=== PATIENT | female | born 1995 | race Caucasian/White ===

== ENCOUNTER 2017-05-09 19:24 | Emergency (ER) | payer OTHER ==
[~2017-05-09] VITALS: Ht 165.1 cm; Wt 82.1 kg
[2017-05-09 19:28] VITALS: Ht 165.1 cm; Wt 82.1 kg
--- NOTE | 2017-05-09 20:01 | ERD ---
ER Documentation Chief Complaint Chief Complaint Vaginal bleeding HPI The patient is a 22-year-old female, A0, who presents to the emergency department with complaint of vaginal bleeding. The patient reports that after using the restroom this evening, approximately 10 minutes ago, she wiped, and noted a small amount of blood on the tissue paper. She denies any passage of large clots or tissue. She denies any dizziness, weakness, fatigue, nausea, vomiting, fevers, sweats, chills, chest pain, palpitations or shortness of breath. Denies any vaginal discharge. Denies dysuria, hematuria or flank pain. The patient reports that her last menstrual period was 03/30/2017. She believes that she is approximately 6 weeks . No other complaints at this time. ROS All systems reviewed and are negative except as per history of present illness. Allergies Allergies: Coded Allergies: No Known Drug Allergies (Verified Allergy, Unknown, 05/09/17) PMhx/Soc History of Surgery: No Anesthesia Reaction: No Hx Neurological Disorder: No Hx Respiratory Disorders: No Hx Cardiac Disorders: No Hx Psychiatric Problems: No Hx Miscellaneous Medical Probl: No Hx Alcohol Use: No Hx Substance Use: No Hx Tobacco Use: No Smoking Status: Never smoker Physical Exam Vitals Vital Signs Date Time Temp Pulse Resp B/P Pulse Ox O2 Delivery O2 Flow Rate FiO2 05/09/17 19:28 98.7 82 20 124/58 99 Physical Exam GENERAL APPEARANCE: Well-developed, well-nourished female in no acute distress. HEENT: Head is normocephalic, atraumatic. No scleral pallor or icterus. Pupils are equal, round, reactive to light. Extraocular movements intact. Moist mucous membranes. NECK: Supple. RESPIRATORY: Lungs are clear to auscultation bilaterally. No rales, rhonchi, or wheezing. CARDIOVASCULAR: Regular rate and rhythm. S1, S2 normal. Distal pulses are palpable 2+ bilaterally. Capillary refill is less than 2 seconds. GASTROINTESTINAL: Abdomen is soft, nontender, nondistended. No guarding. No rebound tenderness. FLANKS: No CVA tenderness bilaterally. BACK: No midline tenderness. EXTREMITIES: No clubbing, cyanosis or edema. Normal skin perfusion. Moving all extremities. Muscle tone is normal. NEUROLOGIC: The patient is alert, awake and oriented x3. No focal neurologic deficits. INTEGUMENT: Skin is intact warm and dry. No rashes or petechiae present. Normal turgor. PSYCHIATRIC: Cooperative. Appropriate. Result Diagram: 05/09/172007 Results 24 hrs Laboratory Tests Test 05/09/17 20:05 05/09/17 20:08 Urine Color STRAW Urine Clarity CLEAR Urine pH 7.0 Urine Specific [place] 1.002 Urine Ketones NEGATIVEmg/dL Urine Nitrite NEGATIVEmg/dL Urine Bilirubin NEGATIVEmg/dL Urine Urobilinogen NEGATIVEmg/dL Urine Leukocyte Esterase NEGATIVELeu/ul Urine Hemoglobin NEGATIVEmg/dL Urine Glucose NEGATIVEmg/dL Urine Total Protein NEGATIVEmg/dl White Blood Count 11.010^3/ul Red Blood Count 4.5410^6/ul Hemoglobin 13.2g/dl Hematocrit 39.8% Mean Corpuscular Volume 87.7fl Mean Corpuscular Hemoglobin 29.1pg Mean Corpuscular Hemoglobin Concent 33.2g/dl Red Cell Distribution Width 13.0% Platelet Count 25501^3/UL Mean Platelet Volume 11.1fl Neutrophils % 60.1% Lymphocytes % 31.1% Monocytes % 6.6% Eosinophils % 1.6% Basophils % 0.3% Nucleated Red Blood Cells % 0.0/100WBC Neutrophils # 6.610^3/ul Lymphocytes # 3.410^3/ul Monocytes # 0.710^3/ul Eosinophils # 0.210^3/ul Basophils # 0.010^3/ul Nucleated Red Blood Cells # 0.010^3/ul Beta HCG, Quantitative 11032.0mIU/ml Procedures/MDM DIAGNOSTIC TESTS AND INTERPRETATION: PROCEDURE: OB Ultrasound. CLINICAL INDICATION: Positive test. Vaginal bleeding. TECHNIQUE: Ultrasound of the pelvis was performed with transabdominal sonography in the axial and sagittal planes. The patient refused transvaginal sonography. COMPARISON: No prior study is available for comparison. FINDINGS: There is no intrauterine gestational sac. The uterus measures 9.2 x 2.9 x 3.9 cm. The endometrium is not well seen. The ovaries are not visualized. There is no other pelvic mass or free fluid. IMPRESSION: 1. Limited study as the patient refused transvaginal sonography. 2. No intrauterine gestational sac. If the patient has a positive test, ectopic gestation cannot be excluded. 3. Endometrium and ovaries not visualized. .Sundeep Palmer MD, Date Time Electronically viewed and signed by .Sundeep Palmer MD, on 05/09/2017 20:37 CONSULTATION: 21:52 Discussed patient case and initial (transabdominal) ultrasound imaging with Dr. Barnhart. Patient refused transvaginal ultrasound. Beta hCG is 22,769. No evidence of IUP on ultrasound imaging. Dr. Barnhart recommends repeat imaging that is transvaginal. Patient agrees. PROCEDURE: US Pelvis/OB. CLINICAL INDICATION: Pelvic pain TECHNIQUE: Multiple sonographic images of the pelvis were obtained utilizing endovaginal technique. The images were reviewed on a PACS workstation. COMPARISON: Same day FINDINGS: There is a small cystic structure within the endometrium measuring 1.2 cm which would correspond to a calculated gestational age of 5 weeks and 6 days. No pole is yet visualized. There is a yolk sac seen. There is Doppler flow in the ovaries. The right ovary measures 3.3 x 2.6 x 2.1 cm. The left ovary measures 3.6 x 2.9 x 3.2 cm. There is a corpus lutein hemorrhagic cyst in the left ovary measuring 1.9 cm. There is a small amount of free fluid adjacent to the left ovary and in the cul- de-sac. IMPRESSION: Probable early intrauterine at 5 weeks and 6 days. Close followup ultrasound and hCG is recommended. Left ovarian corpus luteum cyst. .Larry Hernandez MD, Date Time Electronically viewed and signed by .Larry Hernandez MD, on 05/09/2017 22: 35 The possibility of threatened was discussed with the patient and she was told to follow up with her COLUMNIST/COMMENTATOR within 2-3 days for re-evaluation. The patient complies and agrees with plan. MEDICAL DECISION MAKING: This is a 22-year-old female presenting to the Emergency Department complaining of vaginal bleeding. She had no significant abnormalities noted on physical examination. Vital signs were normal. Differential diagnosis includes, but is not limited to, ectopic , cervicitis, fibroids, molar , implantation bleeding, heterotopic , septic , missed , incomplete , inevitable , threatened , complete , coagulopathy, fibroids, adenomyosis, endometriosis, neoplasia, vaginitis, PID, vaginal trauma , dysfunctional uterine bleeding. No significant abnormalities were noted on testing ordered. Beta hCG is 22,769. Rh (+), no indication for RhoGAM. Ultrasound imaging revealed a probable early intrauterine with yolk sac at 5 weeks and 6 days. After rest, the patient reports no new complaints. Upon review and interpretation of the patient's presentation and overall ER course, I believe the patient's symptoms are most consistent with threatened , and vaginal bleeding in . Pelvic rest advised. At this time the patient patient is in stable condition and therefore she be discharged home with strict return precautions for signs of deteriorating or worsening condition , severe sudden pain, increased bleeding, weakness, syncope, vomiting, dysuria, flank pain. The patient is advised to follow up with her COLUMNIST/COMMENTATOR within 2 days for repeat beta hCG, reevaluation and further management, or return to the ER sooner for any worsening symptoms. I shared all laboratory and diagnostic imaging studies with the patient at length and in great detail, and the patient verbally understands and agrees with the plan for further observation and care as an outpatient. At the time of discharge, all questions were answered. Departure Diagnosis: Primary Impression: Vaginal bleeding in patient at less than 20 weeks gestation Additional Impression: Threatened Condition: Stable Patient Instructions: Bleeding During Early , Possible Miscarriage ( Threatened ), Vaginal Bleed in Additional Instructions: Follow up with your COLUMNIST/COMMENTATOR in 2 days for repeat beta hCG, reevaluation and further management. Return to the ED sooner for any new or worsening symptoms. TODD CHARLES PA-C May 09, 2017 20:01 TODD CHARLES PA-C May 09, 2017 20:01
--- NOTE | 2017-05-09 20:38 | RADRPT ---
PROCEDURE: OB Ultrasound. CLINICAL INDICATION: Positive test. Vaginal bleeding. TECHNIQUE: Ultrasound of the pelvis was performed with transabdominal sonography in the axial and sagittal planes. The patient refused transvaginal sonography. COMPARISON: No prior study is available for comparison. FINDINGS: There is no intrauterine gestational sac. The uterus measures 9.2 x 2.9 x 3.9 cm. The endometrium is not well seen. The ovaries are not visualized. There is no other pelvic mass or free fluid. IMPRESSION: 1. Limited study as the patient refused transvaginal sonography. 2. No intrauterine gestational sac. If the patient has a positive test, ectopic gestation cannot be excluded. 3. Endometrium and ovaries not visualized. RPTAT: QQ .Sundeep Palmer MD, Date Time Electronically viewed and signed by .Sundeep Palmer MD, on 05/09/2017 20:37 .R/
[2017-05-09 20:46] LABS: BASOPHILS % 0.3 % (0.0-2.0); EOSINOPHILS # 0.2 10^3/ul (0.0-0.5); EOSINOPHILS % 1.6 % (0.0-7.0); HEMATOCRIT 39.8 % (37.0-47.0); HEMOGLOBIN 13.2 g/dl (12.0-16.0); LYMPHOCYTES # 3.4 10^3/ul (0.8-2.9); LYMPHOCYTES % 31.1 % (15.0-51.0); MEAN CORPUSCULAR HEMOGLOBIN 29.1 pg (29.0-33.0); MEAN CORPUSCULAR HGB CONC 33.2 g/dl (32.0-37.0); MEAN CORPUSCULAR VOLUME 87.7 fl (82.0-101.0); MEAN PLATELET VOLUME 11.1 fl (7.4-10.4); MONOCYTE # 0.7 10^3/ul (0.3-0.9); MONOCYTES % 6.6 % (0.0-11.0); NEUTROPHIL # 6.6 10^3/ul (1.6-7.5); NEUTROPHILS % 60.1 % (39.0-77.0); PLATELET COUNT 291 10^3/UL (140-415); RED BLOOD COUNT 4.54 10^6/ul (4.20-5.40)
[2017-05-09 20:51] LABS: ADD UMIC NO; UR ASCORBIC ACID NEGATIVE (NEGATIVE); UR BILIRUBIN (Dip) NEGATIVE (NEGATIVE); UR BLOOD (Dip) NEGATIVE (NEGATIVE); UR CLARITY CLEAR (CLEAR); UR COLOR STRAW (YELLOW); UR GLUCOSE (Dip) NEGATIVE (NEGATIVE); UR KETONES (Dip) NEGATIVE (NEGATIVE); UR LEUKOCYTE ESTERASE (Dip) NEGATIVE Leu/ul (NEGATIVE); UR NITRITE (Dip) NEGATIVE (NEGATIVE); UR SPECIFIC GRAVITY (Dip) 1.002 (1.003-1.030); UR TOTAL PROTEIN (Dip) NEGATIVE (NEGATIVE); UR UROBILINOGEN (Dip) NEGATIVE (NEGATIVE)
--- NOTE | 2017-05-09 22:36 | RADRPT ---
PROCEDURE: US Pelvis/OB. CLINICAL INDICATION: Pelvic pain TECHNIQUE: Multiple sonographic images of the pelvis were obtained utilizing endovaginal technique . The images were reviewed on a PACS workstation. COMPARISON: Same day FINDINGS: There is a small cystic structure within the endometrium measuring 1.2 cm which would correspond to a calculated gestational age of 5 weeks and 6 days. No pole is yet visualized. There is a yolk sac seen. There is Doppler flow in the ovaries. The right ovary measures 3.3 x 2.6 x 2.1 cm. The left ovary measures 3.6 x 2.9 x 3.2 cm. There is a corpus lutein hemorrhagic cyst in the left ov gwendolyn measuring 1.9 cm. There is a small amount of free fluid adjacent to the left ovary and in the cul-de-sac. RPTAT: AA IMPRESSION: Probable early intrauterine at 5 weeks and 6 days. Close followup ultrasound and hCG is recommended. Left ovarian corpus luteum cyst. .Larry Hernandez MD, MD Date Time Electronically viewed and signed by .Larry Hernandez MD, on 05/09/2017 22:35 .S/
[2017-05-09 22:49] VITALS: BP 120/62; PULSE 84; RESP 20; TEMP 98.7
== END 2017-05-09 22:51 | disposition home or self-care (01) ==
LOC: FTE 19:24
DX: O20.0 Threatened abortion (principal); Z3A.01 Less than 8 weeks gestation of pregnancy
CPT/HCPCS: 36415; 76801; 76817; 81003; 84702; 85025; 86900; 86901; Z7502